=== PATIENT | female | born 1985 | race Caucasian/White ===

== ENCOUNTER 2018-04-04 01:05 | Emergency (ER) | payer OTHER ==
[2018-04-04] MEDS ORDERED: Zofran 4 MG/2 ML VIAL IV ONE (01:18)
[2018-04-04] MEDS ORDERED: Sodium Chloride 0.9% 1000 ML 1,000 ML IV STA ×3 (01:18→04:06)
[2018-04-04] MEDS ORDERED: Sodium Chloride 0.9% 1000 ML 1,000 ML ONE ×3 (01:18→04:12)
--- NOTE | 2018-04-04 01:18 | ERPHSYRPT ---
- History of Present Illness Source: patient, EMS Timing/Duration: today Severity of Symptoms-Max: moderate Severity of Symptoms-Current: moderate Context related to: living circumstances Suicidal thoughts: gesture Associated Symptoms: frustrated, ingestion, suicidal ideation Previous symptoms: no prior history Hx Tetanus, Diphtheria Vaccination/Date Given: Yes Hx Influenza Vaccination/Date Given: No Hx Pneumococcal Vaccination/Date Given: No <MARI VAZQUEZ - Last Filed: 04/04/18 06:43> <KAYLIE FLANNERY - Last Filed: 04/04/18 12:49> - History of Present Illness Time Seen by Provider: 04/04/18 01:09 Physician History: 32 y/o white female brought in by EMS intoxicated with alcohol and trazadone. report to EMS was pt was suicidal. pt arrives intoxicated but conversant and breathing on her own and handling her secretions. upon EMS arrival, family handed them an old empty bottle of alprazolam 0.5mg and an old bottle of tramadol. in attempting to clarify what she taken she now states she took three seroquel 200mg and three trazadone 100mg. pt states she was trying to "get away " from everything. pt denies head injury, denies cp, denies soa and denies abd pain. pt states she took this medication and alcohol approx 1999 to 2029 last pm. (MARI VAZQUEZ) Allergies/Adverse Reactions: No Known Drug Allergies Allergy (Verified 04/04/18 01:27) Home Medications: ALPRAZolam [Xanax 0.5 mg] 0.5 mg PO BID PRN PRN 05/04/15 [History] Trazodone HCl 200 mg PO HS 05/04/15 [History] Venlafaxine HCl [Effexor Xr] 150 mg PO DAILY 05/04/15 [History] Dextroamphetamine/Amphetamine [Dextroamp-Amphetamin 20 mg Tab] 20 mg PO DAILY [History] Quetiapine Fumarate 200 mg PO HS 04/04/18 [History] - Past Medical History Pertinent Past Medical History: Yes Neurological History: No Pertinent History ENT History: No Pertinent History Cardiac History: No Pertinent History Respiratory History: No Pertinent History Endocrine Medical History: Other Musculoskeletal History: No Pertinent History GI Medical History: No Pertinent History History: No Pertinent History Psycho-Social History: Depression Female Reproductive Disorders: No Pertinent History Other Medical History: KIDNEY STONES HX, SMOKING HX - Past Surgical History Past Surgical History: Yes Neuro Surgical History: No Pertinent History Cardiac: No Pertinent History Respiratory: No Pertinent History Gastrointestinal: No Pertinent History Genitourinary: Kidney Surgery Musculoskeletal: No Pertinent History Female Surgical History: Section, Tubal Ligation Other Surgical History: tonsilectomy, kidney stone removal - Social History Smoking Status: Current every day smoker How long have you smoked: 10 Exposure to second hand smoke: No Drug Use: none Patient Lives Alone: No <MARI VAZQUEZ - Last Filed: 04/04/18 06:43> - Review of Systems Constitutional: No Symptoms, No Fever, No Chills Eyes: No Symptoms, No Discharge, No Eye Pain Ears, Nose, & Throat: No Symptoms, No Ear Pain Respiratory: No Symptoms, No Cough, No Dyspnea, No Stridor, No Wheezing Cardiac: No Symptoms, No Chest Pain, No Palpitations, No Syncope Abdominal/Gastrointestinal: No Symptoms, No Nausea, No Vomiting, No Diarrhea, No Constipation Genitourinary Symptoms: No Symptoms, No Dysuria, No Frequency, No Hematuria Musculoskeletal: No Symptoms, No Back Pain, No Neck Pain, No Deformity, No Fall , No Injury Skin: No Symptoms Neurological: Lethargy Psychological: Alcohol Abuse, Depression, Suicidal Ideations Endocrine: No Symptoms Hematologic/Lymphatic: No Symptoms Immunological/Allergic: No Symptoms All Other Systems: Reviewed and Negative <MARI VAZQUEZ - Last Filed: 04/04/18 06:43> - Physical Exam General Appearance: lethargy (rousable) Eyes, Ears, Nose, Throat Exam: moist mucous membranes Neck Exam: normal inspection, non-tender, supple, full range of motion Respiratory Exam: normal breath sounds, lungs clear, airway intact, No chest tenderness, No respiratory distress, No accessory muscle use, No rhonchi, No wheezing, No stridor Cardiovascular Exam: regular rate/rhythm, normal heart sounds, normal peripheral pulses Gastrointestinal/Abdominal Exam: soft, normal bowel sounds, No tenderness, No guarding, No rebound Extremities Exam: normal inspection, normal range of motion, No evidence of injury, No tenderness Neurological Exam: calm, 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, oriented x 3, responds to pain Appearance: appropriate appearance, impaired insight, impaired recent memory Behavior/Eye Contact/Speech: cooperative, avoids eye contact, intoxicated appearance Thoughts/Hallucinations: no apparent hallucination Skin Exam: normal color, warm, dry SpO2 Interpretation: normal Oxygen Delivery: Room Air <MARI VAZQUEZ - Last Filed: 04/04/18 06:43> - Nursing Vital Signs Nursing Vital Signs: Initial Vital Signs Temperature 97.5 F 04/04/18 01:06 Pulse Rate 103 H 04/04/18 01:06 Respiratory Rate 23 04/04/18 01:06 Blood Pressure 123/78 04/04/18 01:06 O2 Sat by Pulse Oximetry 95 04/04/18 01:06 Pain Scale Pain Intensity 0 - Course Nursing assessment & vital signs reviewed: Yes EKG Interpreted by Me: RATE (105), Sinus Tach, NORMAL AXIS, NORMAL QRS, Non- specific ST Changes <MARI VAZQUEZ - Last Filed: 04/04/18 06:43> Ordered Tests: Active Orders 24 hr Category Date Time Status CO2 Monitoring STAT Care 04/04/18 01:25 Active Adjunct Business Instructor STAT Care 04/04/18 01:37 Active EKG-ER Only STAT Care 04/04/18 01:18 Active Benitez [Catheter-[place] Benitez] STAT Care 04/04/18 01:34 Active IV Insertion STAT Care 04/04/18 01:18 Active IV Insertion-2nd Peripheral STAT Care 04/04/18 01:31 Active Psychiatric Consult STAT Cons 04/04/18 01:18 Active HEAD WITHOUT CONTRAST [CT] Stat Exams 04/04/18 01:31 Completed ACETAMINOPHEN Stat Lab 04/04/18 01:38 Completed Alcohol [ETHYL ALCOHOL] Stat Lab 04/04/18 05:06 Completed CBC W DIFF Stat Lab 04/04/18 01:38 Completed CMP Stat Lab 04/04/18 01:38 Completed ETHYL ALCOHOL Stat Lab 04/04/18 01:38 Completed HCG,QUALITATIVE URINE Stat Lab 04/04/18 01:38 Completed SALICYLATE Stat Lab 04/04/18 01:38 Completed UA W/RFX UR CULTURE Stat Lab 04/04/18 01:38 Completed Urine Triage Profile Stat Lab 04/04/18 01:38 Completed Medication Summary Discontinued Medications Generic Name Dose Route Start Last Admin Trade Name Freq PRN Reason Stop Dose Admin Famotidine 40 mg 04/04/18 01:21 04/04/18 01:29 Pepcid 20 Mg Vial IV 04/04/18 01:22 40 mg STAT ONE Administration Famotidine Confirm 04/04/18 01:23 Pepcid 20 Mg Vial Administered 04/04/18 01:24 Dose 20 mg IV .STK-MED ONE Sodium Chloride Confirm 04/04/18 01:18 Sodium Chloride 0.9% 1000 Ml Administered 04/04/18 01:19 Dose 1,000 mls @ ud .ROUTE .STK-MED ONE Sodium Chloride 1,000 mls @ 999 mls/hr 04/04/18 01:18 04/04/18 03:38 Sodium Chloride 0.9% 1000 Ml IV 04/04/18 02:18 Infused .Q1H1M STA Infusion Sodium Chloride 1,000 mls @ 999 mls/hr 04/04/18 02:26 04/04/18 03:38 Sodium Chloride 0.9% 1000 Ml IV 04/04/18 03:26 Infused .Q1H1M STA Infusion Sodium Chloride Confirm 04/04/18 02:28 Sodium Chloride 0.9% 1000 Ml Administered 04/04/18 02:29 Dose 1,000 mls @ ud .ROUTE .STK-MED ONE Sodium Chloride 1,000 mls @ 999 mls/hr 04/04/18 04:06 04/04/18 12:24 Sodium Chloride 0.9% 1000 Ml IV 04/04/18 05:06 Infused .Q1H1M STA Infusion Sodium Chloride Confirm 04/04/18 04:12 Sodium Chloride 0.9% 1000 Ml Administered 04/04/18 04:13 Dose 1,000 mls @ ud .ROUTE .STK-MED ONE Ondansetron HCl 4 mg 04/04/18 01:18 04/04/18 01:29 Zofran 4 Mg/2 Ml Vial IV 04/04/18 01:19 4 mg STAT ONE Administration Ondansetron HCl Confirm 04/04/18 01:23 Zofran 4 Mg/2 Ml Vial Administered 04/04/18 01:24 Dose 4 mg .ROUTE .STK-MED ONE Lab/Rad Data: Laboratory Result Diagrams 04/04/18 01:38 04/04/18 01:38 Laboratory Results 04/04/18 04/04/18 04/04/18 Range/Units 05:06 01:38 01:38 WBC (4.0-10.5) K/mm3 RBC (4.1-5.4) M/mm3 Hgb (12.0-16.0) gm/dl Hct (35-47) % MCV (78-100) fl MCH (26-32) pg MCHC (32-36) g/dl RDW (11.5-14.0) % Plt Count (150-450) K/mm3 MPV (6-9.5) fl Gran % (36.0-66.0) % Eos # (Auto) (0-0.5) Absolute Lymphs (auto) (1.0-4.6) Absolute Monos (auto) (0.0-1.3) Lymphocytes % (24.0-44.0) % Monocytes % (0.0-12.0) % Eosinophils % (0.00-5.0) % Basophils % (0.0-0.4) % Absolute Granulocytes (1.4-6.9) Basophils # (0-0.4) Sodium (137-145) mmol/L Potassium (3.5-5.1) mmol/L Chloride (98-107) mmol/L Carbon Dioxide (22-30) mmol/L Anion Gap (5-15) MEQ/L BUN (7-17) mg/dL Creatinine (0.52-1.04) mg/dL Estimated GFR ML/MIN Glucose (74-106) mg/dL Calcium (8.4-10.2) mg/dL Total Bilirubin (0.2-1.3) mg/dL AST (14-36) U/L ALT (0-35) U/L Alkaline Phosphatase (38-126) U/L Serum Total Protein (6.3-8.2) g/dL Albumin (3.5-5.0) g/dL Urine Color STRAW (YELLOW) Urine Appearance CLEAR (CLEAR) Urine pH 6.0 (5-6) Ur Specific [place] 1.004 (1.005-1.025) Urine Protein NEGATIVE (Negative) Urine Ketones NEGATIVE (NEGATIVE) Urine Blood NEGATIVE (0-5) David/ul Urine Nitrite NEGATIVE (NEGATIVE) Urine Bilirubin NEGATIVE (NEGATIVE) Urine Urobilinogen NEGATIVE (0-1) mg/dL Ur Leukocyte Esterase NEGATIVE (NEGATIVE) Urine WBC (Auto) 0-2 (0-5) /HPF Urine RBC (Auto) 0-2 (0-2) /HPF U Epithel Cells (Auto) RARE (FEW) /HPF Urine Mucus (Auto) SLIGHT (NEGATIVE) /HPF Urine Culture Reflexed NO (NO) Urine Glucose NEGATIVE (NEGATIVE) mg/dL Urine HCG, Qual (Negative) Salicylates (2-20) mg/dL Urine Opiates Level NEGATIVE (NEGATIVE) Ur Methadone NEGATIVE (NEGATIVE) Acetaminophen (10-30) ug/ml Urine Barbiturates NEGATIVE (NEGATIVE) Ur Phencyclidine (PCP) NEGATIVE (NEGATIVE) Urine Amphetamine POSITIVE (NEGATIVE) U Benzodiazepine Level NEGATIVE (NEGATIVE) Urine Cocaine NEGATIVE (NEGATIVE) Urine Marijuana (THC) NEGATIVE (NEGATIVE) Ethyl Alcohol 19 H (0-10) mg/dL 04/04/18 04/04/18 04/04/18 Range/Units 01:38 01:38 01:38 WBC 6.2 (4.0-10.5) K/mm3 RBC 3.81 L (4.1-5.4) M/mm3 Hgb 13.2 (12.0-16.0) gm/dl Hct 37.5 (35-47) % MCV 98.4 (78-100) fl MCH 34.6 H (26-32) pg MCHC 35.2 (32-36) g/dl RDW 13.0 (11.5-14.0) % Plt Count 286 (150-450) K/mm3 MPV 9.9 H (6-9.5) fl Gran % 33.9 L (36.0-66.0) % Eos # (Auto) 0.46 (0-0.5) Absolute Lymphs (auto) 3.04 (1.0-4.6) Absolute Monos (auto) 0.54 (0.0-1.3) Lymphocytes % 49.3 H (24.0-44.0) % Monocytes % 8.8 (0.0-12.0) % Eosinophils % 7.5 H (0.00-5.0) % Basophils % 0.5 (0.0-0.4) % Absolute Granulocytes 2.10 (1.4-6.9) Basophils # 0.03 (0-0.4) Sodium 145 (137-145) mmol/L Potassium 3.3 L (3.5-5.1) mmol/L Chloride 110 H (98-107) mmol/L Carbon Dioxide 21 L (22-30) mmol/L Anion Gap 17.3 H (5-15) MEQ/L BUN 10 (7-17) mg/dL Creatinine 0.57 (0.52-1.04) mg/dL Estimated GFR > 60.0 ML/MIN Glucose 107 H (74-106) mg/dL Calcium 8.5 (8.4-10.2) mg/dL Total Bilirubin 0.20 (0.2-1.3) mg/dL AST 21 (14-36) U/L ALT 11 (0-35) U/L Alkaline Phosphatase 59 (38-126) U/L Serum Total Protein 6.8 (6.3-8.2) g/dL Albumin 4.1 (3.5-5.0) g/dL Urine Color (YELLOW) Urine Appearance (CLEAR) Urine pH (5-6) Ur Specific [place] (1.005-1.025) Urine Protein (Negative) Urine Ketones (NEGATIVE) Urine Blood (0-5) David/ul Urine Nitrite (NEGATIVE) Urine Bilirubin (NEGATIVE) Urine Urobilinogen (0-1) mg/dL Ur Leukocyte Esterase (NEGATIVE) Urine WBC (Auto) (0-5) /HPF Urine RBC (Auto) (0-2) /HPF U Epithel Cells (Auto) (FEW) /HPF Urine Mucus (Auto) (NEGATIVE) /HPF Urine Culture Reflexed (NO) Urine Glucose (NEGATIVE) mg/dL Urine HCG, Qual NEGATIVE (Negative) Salicylates < 1.0 L (2-20) mg/dL Urine Opiates Level (NEGATIVE) Ur Methadone (NEGATIVE) Acetaminophen < 10 L (10-30) ug/ml Urine Barbiturates (NEGATIVE) Ur Phencyclidine (PCP) (NEGATIVE) Urine Amphetamine (NEGATIVE) U Benzodiazepine Level (NEGATIVE) Urine Cocaine (NEGATIVE) Urine Marijuana (THC) (NEGATIVE) Ethyl Alcohol 119 H (0-10) mg/dL <MARI VAZQUEZ - Last Filed: 04/04/18 06:43> - Progress Progress: improved Counseled pt/family regarding: lab results, diagnosis <KAYLIE FLANNERY - Last Filed: 04/04/18 12:49> - Progress Progress Note: 10/06/18 01:33 contacted poison control, Kael. she states OD defined as 5X single dose for both seroquel and trazodone. Watch for 8 hours. routine overdose protocol. no other recommendations 04/04/18 06:44 0600 [facility] returns call. they state to call them again at 0900, 8 hours after observation period in the ED which will be 0900. 04/04/18 06:45 i am transferring care to dr. flannery in the ED at 0700. i will discuss pt hx, condition, lab, ekg and ct head results. pt has been stable. (MARI VAZQUEZ) 04/04/18 07:20 Pt care discussed and care accepted from Dr Vazquez at 07:00. 04/04/18 10:26 [facility] evaluates pt via tele-psych and Katharina Rhodes recommends in- pt. 04/04/18 11:41 [facility] coordinated transfer [facility] per [facility] Silvestre Cunningham. 04/04/18 11:49 Pt informed that she needs in-pt treatment for depression and suicide attempt. Pt appears unwilling to go to [facility]. ED obtained. (KAYLIE FLANNERY) <MARI VAZQUEZ - Last Filed: 04/04/18 06:43> - Departure Time of Disposition: 11:40 Departure Disposition: Transfer (Transfer to [facility] per Dr Cunningham. Pt sent under ED order.) Critical Care Time: No <KAYLIE FLANNERY - Last Filed: 04/04/18 12:49> - Departure Clinical Impression: Depression, Suicide attempt by drug ingestion Condition: Stable Referrals: NINA GARCIA NP [Primary Care Provider] -
[2018-04-04] MEDS ORDERED: Pepcid 20 MG VIAL IV ONE ×2 (01:21→01:23)
[2018-04-04] MEDS ORDERED: Zofran 4 MG/2 ML VIAL ONE (01:23)
[2018-04-04 01:43] LABS: BASOPHIL % 0.5 % (0.0-0.4); Basophil (Absolute #) 0.03 (0-0.4); Eosinophil % 7.5 % (0.00-5.0); Eosinophil (Absolute #) 0.46 (0-0.5); Granulocytes % 33.9 % (36.0-66.0); Hematocrit 37.5 % (35-47); Hemoglobin 13.2 gm/dl (12.0-16.0); Lymphocyte (Absolute #) 3.04 (1.0-4.6); Lymphocytes % 49.3 % (24.0-44.0); Mean Cell Volume 98.4 fl (78-100); Mean Corpuscular Hemoglobin 34.6 pg (26-32); Mean Corpuscular Hgb Concent. 35.2 g/dl (32-36); Mean Platelet Volume 9.9 fl (6-9.5); Monocyte (Absolute #) 0.54 (0.0-1.3); Monocytes % 8.8 % (0.0-12.0); Platelet Count 286 K/mm3 (150-450); Red Blood Count 3.81 M/mm3 (4.1-5.4); White Blood Count 6.2 K/mm3 (4.0-10.5)
[2018-04-04 01:47] LABS: Appearance CLEAR (CLEAR); Bilirubin NEGATIVE (NEGATIVE); Blood NEGATIVE Ery/ul (0-5); Glucose NEGATIVE (NEGATIVE); Ketones NEGATIVE (NEGATIVE); Leukocyte Esterase NEGATIVE (NEGATIVE); Nitrite NEGATIVE (NEGATIVE); Protein,Urine Dip NEGATIVE (Negative); Specific Gravity 1.004 (1.005-1.025); Urobilinogen NEGATIVE mg/dL (0-1)
[2018-04-04 01:53] LABS: ALBUMIN 4.1 g/dL (3.5-5.0); ALKALINE PHOSPHATASE 59 U/L (38-126); ANION GAP 17.3 MEQ/L (5-15); BLOOD UREA NITROGEN 10 mg/dL (7-17); CHLORIDE 110 mmol/L (98-107); Calcium 8.5 mg/dL (8.4-10.2); Carbon Dioxide 21 mmol/L (22-30); Creatinine 1 0.57 mg/dL (0.52-1.04); ETHYL ALCOHOL 119 mg/dL (0-10); Glucose 107 mg/dL (74-106); Potassium 3.3 mmol/L (3.5-5.1); SGOT/AST 21 U/L (14-36); SGPT/ALT 11 U/L (0-35); SODIUM 145 mmol/L (137-145); Total Protein 6.8 g/dL (6.3-8.2)
[2018-04-04 01:54] LABS: ACETAMINOPHEN < 10 ug/ml (10-30); SALICYLATE < 1.0 mg/dL (2-20)
[2018-04-04 02:01] LABS: Amphetamine,Urine POSITIVE (NEGATIVE); Barbiturate,Urine NEGATIVE (NEGATIVE); Benzodiazepine,Urine NEGATIVE (NEGATIVE); Cocaine,Urine NEGATIVE (NEGATIVE); Methadone,Urine NEGATIVE (NEGATIVE); Opiate,Urine NEGATIVE (NEGATIVE); PCP,Urine NEGATIVE (NEGATIVE); THC,Urine NEGATIVE (NEGATIVE)
--- NOTE | 2018-04-04 06:50 | XRAY ---
Indication: Altered mental status. Overdose. Multiple contiguous axial images obtained through the head without contrast. Comparison: None Normal appearing brain parenchyma, ventricles, and bony calvarium. Visualized paranasal sinuses and mastoid air cells are clear. Impression: Normal CT head without contrast exam. Comment: Preliminary interpretation was made by [facility]. No discrepancy. CTDI 67.80
[2018-04-04 13:35] VITALS: BP 118/79; PULSE 97; O2SAT 96
== END 2018-04-04 13:35 | disposition short-term general hospital (02) ==
LOC: ED 01:05
DX: F32.9 Major depressive disorder, single episode, unspecified (principal); T43.592A Poisoning by other antipsychotics and neuroleptics, intentional self-harm, initial encounter; T43.212A Poisoning by selective serotonin and norepinephrine reuptake inhibitors, intentional self-harm, initial encounter
CPT/HCPCS: 36000; 36415; 51702; 70450; 80053; 80307; 81001; 84703; 85025; 90791; 93005; 93041; 94250; 96360; 96374; 96375; 99285; G0481; 96361; J2405; Q3014; G0480

== ENCOUNTER 2020-01-26 06:59 | Day surgery (SDC) | payer OTHER ==
[2020-01-26] MEDS ORDERED: Lactated Ringers 1,000 ML IV SCH (07:00)
[2020-01-26] MEDS ORDERED: Lactated Ringers 1,000 ML IV ONE ×2 (07:14→08:42)
[2020-01-26] MEDS ORDERED: MEFOXIN 2 GM PREMIX** 2 GM/50 ML ML IV SCH (08:00)
[2020-01-26] MEDS ORDERED: Versed 2 MG/2 ML Injection ONE ×2 (08:14→08:28)
[2020-01-26] MEDS ORDERED: Versed 2 MG/2 ML Injection IV ONE (08:18)
[2020-01-26] MEDS ORDERED: DIPRIVAN 200 MG/20 ML IV ONE (08:28)
[2020-01-26] MEDS ORDERED: Zemuron 100 MG/10 ML ONE (08:28)
[2020-01-26] MEDS ORDERED: SUBLIMAZE 250 MCG/5 ML ONE (08:30)
[2020-01-26] MEDS ORDERED: Sensorcaine 0.25% 10 ML ONE (08:41)
[2020-01-26] MEDS ORDERED: Zofran 4 MG/2 ML VIAL ONE (09:36)
[2020-01-26] MEDS ORDERED: Decadron 4 MG INJ ONE (09:36)
[2020-01-26] MEDS ORDERED: BRIDION 200MG/2ML IV ONE (10:24)
[2020-01-26] MEDS ORDERED: SUBLIMAZE 100 MCG/2 ML ONE (10:45)
[2020-01-26] MEDS ORDERED: TORAdol 30 mg Injection ONE (10:45)
[2020-01-26] MEDS ORDERED: NORCO 5/325 MG PO PRN (12:04)
[2020-01-26] MEDS ORDERED: NORCO 5/325 MG ONE (12:07)
[2020-01-26 13:01] VITALS: PULSE 98
[2020-01-26 13:05] VITALS: O2SAT 95
[2020-01-26 13:13] VITALS: BP 122/82
--- NOTE | 2020-01-26 13:35 | OP ---
SURGERY DATE/TIME: 01/26/2020919 PREOPERATIVE DIAGNOSIS: Chronic calculus cholecystitis. POSTOPERATIVE DIAGNOSIS: Chronic calculus cholecystitis. PROCEDURE: Laparoscopic cholecystectomy. SURGEON: Alexys Horowitz M.D. ANESTHESIA: General. ESTIMATED BLOOD LOSS: Less than 10 cc. COMPLICATIONS: None. SPECIMEN: Gallbladder. FINDINGS: Chronic calculus cholecystitis. INDICATION: This patient presented with signs, symptoms and imaging consistent with chronic calculus cholecystitis. She did have a recent laparoscopic appendectomy for perforated appendicitis with abscess that she has recovered well from. After discussing the risks and benefits of laparoscopic cholecystectomy possible open, the patient wished to proceed. DESCRIPTION OF PROCEDURE: The patient was brought to the operating room, placed supine on the operating table. The patient was placed under general anesthesia. The abdomen was prepped and draped in sterile fashion. Veress needle inserted left upper quadrant. Pneumoperitoneum obtained. A 5 mm optical trocar placed inserted. Under direct visualization the abdomen inspected and there did not appear to be inadvertent injury. Additional 11 mm trocar was placed an old incision just below the umbilicus and two - 5 mm trocars placed along the right side, one through a prior incision in the right mid abdomen. The patient placed in reverse Trendelenburg position and rolled to the left. The gallbladder was grasped by the fundus and retracted superior-laterally. Infundibulum retracted inferior-laterally. Careful dissection performed in the triangle of Calot. The cystic duct and cystic artery were skeletonized. The bottom third of the hepatocystic plate was completely cleared off. The anatomy was excellent. She is very thin and you can see the cystic duct and common bile duct junction and were well away from this area. The cystic node was dissected off the artery to totally clear off the cystic artery. After excellent critical view was obtained, the cystic duct and cystic artery were clipped with 5 mm metal clip applied anthropologist with three clips on the stay side of the duct and two clips on the stay side of the artery and transected with hook scissors. The gallbladder is removed the rest of the way with hook electrocautery from the liver bed. There was no bleeding. There was no need to irrigate or suction. The field is pristine. There is no bile spillage. The gallbladder was removed through the umbilical trocar with a bag. Trocar site was closed with 0 Vicryl suture with suture passer x2. The remaining trocars removed under direct visualization and wound desufflated. The wound injected with 0.25% Marcaine. Wounds closed with 4-0 Vicryl suture, Steri-Strips and dressings were applied. The patient was recovered and taken to PACU in stable condition.
== END 2020-01-26 12:50 | disposition home or self-care (01) ==
LOC: SDC 06:59
PROVIDERS: ATTEND Surgery
DX: K80.10 Calculus of gallbladder with chronic cholecystitis without obstruction (principal)
CPT/HCPCS: 84703; J0694; J1100; J1885; J2250; J2405; J2704; J3010; A9270-GY

== ENCOUNTER 2022-04-17 13:43 | Day surgery (SDC) | payer OTHER ==
[2012-04-07 10:48] VITALS: BP 119/72
[2022-04-17] MEDS ORDERED: LIDOCAINE HCL 2% 100 MG/5 ML IJ ONE (13:44)
[2022-04-17] MEDS ORDERED: Depo-Medrol 40 MG/ML IM ONE (13:44)
[2022-04-17] MEDS ORDERED: Lactated Ringers 1,000 ML IV ONE (15:21)
[2022-04-17] MEDS ORDERED: DIPRIVAN 200 MG/20 ML IV ONE (15:52)
--- NOTE | 2022-04-17 16:40 | XRAY ---
Indication: Bilateral L4-S1 MBB. Intraoperative fluoroscopy provided for 13 seconds. Single digital spot image submitted for interpretation demonstrates posterior needle tips projecting over the expected left and right L4-S1 nerve roots. Correlate with intraoperative findings/report.
--- NOTE | 2022-04-17 16:49 | XRAY ---
13 seconds fluoroscopy time in surgery for bilateral L4-S1 MBB.
== END 2022-04-17 16:25 | disposition home or self-care (01) ==
LOC: SDC-PAIN 13:43
PROVIDERS: ATTEND Psychiatry & Neurology Pain Medicine
DX: M47.816 Spondylosis without myelopathy or radiculopathy, lumbar region (principal); Z79.899 Other long term (current) drug therapy
CPT/HCPCS: 64493; 64494; 72020; 77002; 81025; J1030; J2704

== ENCOUNTER 2022-05-15 14:10 | Day surgery (SDC) | payer OTHER ==
[2012-04-07 10:48] VITALS: BP 119/72
[2022-05-15] MEDS ORDERED: BUPIVACAINE 0.5% VIAL IJ ONE (14:11)
[2022-05-15] MEDS ORDERED: DIPRIVAN 200 MG/20 ML IV ONE (15:55)
[2022-05-15] MEDS ORDERED: Lactated Ringers 1,000 ML IV ONE (16:39)
--- NOTE | 2022-05-15 16:47 | XRAY ---
Indication: Bilateral L4-S1 MBB. Intraoperative fluoroscopy provided for 9 seconds. Single digital spot image submitted for interpretation demonstrates posterior needle tips projecting over the expected left and right L4-S1 nerve roots. Correlate with intraoperative findings/report.
--- NOTE | 2022-05-15 16:57 | XRAY ---
9 seconds of fluoroscopy was used in surgery for a bilateral L4-S1 MBB.
== END 2022-05-15 16:05 | disposition home or self-care (01) ==
LOC: SDC-PAIN 14:10
PROVIDERS: ATTEND Psychiatry & Neurology Pain Medicine
DX: M47.816 Spondylosis without myelopathy or radiculopathy, lumbar region (principal); Z79.899 Other long term (current) drug therapy
CPT/HCPCS: 64493; 64494; 72020; 77002; 81025; J2704

== ENCOUNTER 2022-05-29 12:14 | Day surgery (SDC) | payer OTHER ==
[2012-04-07 10:48] VITALS: BP 119/72
[2022-05-29] MEDS ORDERED: Decadron 4 MG INJ IV ONE (12:15)
[2022-05-29] MEDS ORDERED: Xylocaine 1% Vial 30 ML PF IJ ONE (12:15)
--- NOTE | 2022-05-29 19:49 | XRAY ---
Indication: Left piriformis injection. Intraoperative fluoroscopy provided for 15 seconds. Single digital spot image submitted for interpretation demonstrates posterior needle tip projecting over the left piriformis muscle. Small amount of contrast injected for needle tip placement. Correlate with intraoperative findings/report.
--- NOTE | 2022-05-29 20:03 | XRAY ---
15 seconds fluoroscopy time in surgery for injection of the left piriformis muscle.
== END 2022-05-29 14:56 | disposition home or self-care (01) ==
LOC: SDC-PAIN 12:14
PROVIDERS: ATTEND Psychiatry & Neurology Pain Medicine
DX: M79.18 Myalgia, other site (principal); Z79.899 Other long term (current) drug therapy
CPT/HCPCS: 20552; 72170; 77002; 81025; J1100; J2001; Q9966

== ENCOUNTER 2022-06-12 12:37 | Day surgery (SDC) | payer OTHER ==
[2012-04-07 10:48] VITALS: BP 119/72
[2022-06-12] MEDS ORDERED: LIDOCAINE HCL 1% 50 MG/5 ML VL PF IJ ONE (12:38)
[2022-06-12] MEDS ORDERED: BUPIVACAINE 0.5% VIAL IJ ONE (12:38)
[2022-06-12] MEDS ORDERED: Depo-Medrol 40 MG/ML IM ONE (12:38)
[2022-06-12] MEDS ORDERED: Versed 2 MG/2 ML Injection ONE (13:10)
[2022-06-12] MEDS ORDERED: DIPRIVAN 200 MG/20 ML IV ONE (14:37)
[2022-06-12] MEDS ORDERED: Lactated Ringers 1,000 ML IV ONE (14:59)
--- NOTE | 2022-06-12 16:40 | XRAY ---
Indication: Right L4-S1 RFA. Intraoperative fluoroscopy provided for 16 seconds. 5 digital spot images submitted for interpretation demonstrates posterior needle tips projecting over the expected right L4-S1 nerve roots. Correlate with intraoperative findings/report.
--- NOTE | 2022-06-12 17:22 | XRAY ---
16 seconds of fluoroscopy was used in surgery for a right L4-S1 RFA.
== END 2022-06-12 15:10 | disposition home or self-care (01) ==
LOC: SDC-PAIN 12:37
PROVIDERS: ATTEND Psychiatry & Neurology Pain Medicine
DX: M47.816 Spondylosis without myelopathy or radiculopathy, lumbar region (principal); Z79.899 Other long term (current) drug therapy
CPT/HCPCS: 64635; 64636; 72100; 77002; 81025; J1030; J2001; J2250; J2704

== ENCOUNTER 2022-06-19 17:17 | Day surgery (SDC) | payer OTHER ==
[2012-04-07 10:48] VITALS: BP 119/72
[2022-06-19] MEDS ORDERED: LIDOCAINE HCL 1% 50 MG/5 ML VL PF IJ ONE (17:18)
[2022-06-19] MEDS ORDERED: Depo-Medrol 40 MG/ML IM ONE (17:18)
[2022-06-19] MEDS ORDERED: BUPIVACAINE 0.5% VIAL IJ ONE (17:18)
[2022-06-19] MEDS ORDERED: VERSED 5 MG/5 ML ONE (18:24)
[2022-06-19] MEDS ORDERED: SUBLIMAZE 100 MCG/2 ML ONE (18:38)
[2022-06-19] MEDS ORDERED: Versed 2 MG/2 ML Injection ONE (18:38)
--- NOTE | 2022-06-19 19:36 | XRAY ---
Indication: Left L4-S1 RFA. Intraoperative fluoroscopy provided for 28 second. 6 digital spot image submitted for interpretation demonstrates posterior needle tips projecting over the expected left L4-S1 nerve roots. Correlate with intraoperative findings/report.
--- NOTE | 2022-06-20 09:18 | XRAY ---
28 seconds of fluoroscopy was used in surgery for a left L4-S1 RFA.
== END 2022-06-19 19:13 | disposition home or self-care (01) ==
LOC: SDC-PAIN 17:17
PROVIDERS: ATTEND Psychiatry & Neurology Pain Medicine
DX: M47.816 Spondylosis without myelopathy or radiculopathy, lumbar region (principal); Z79.899 Other long term (current) drug therapy
CPT/HCPCS: 64635; 64636; 72100; 77002; 81025; J1030; J2001; J2250; J3010